=== PATIENT | male | born 1965 | race Caucasian/White ===

== ENCOUNTER → 2016-05-21 | Outpatient (CLI) | payer BC ==
[~2016-05-21] MED LIST: NO HOME MEDICATIONS; NORCO 325 MG-51 TAB PO
== END ==
LOC: COL.RAD 11:57
DX: R10.11 Right upper quadrant pain (principal)

== ENCOUNTER → 2016-05-27 | Outpatient (CLI) | payer BC | LOC: COL.RAD 09:56 | DX: R10.11 Right upper quadrant pain (principal); R93.2 Abnormal findings on diagnostic imaging of liver and biliary tract | CPT/HCPCS: A9537 ==

== ENCOUNTER 2016-06-06 09:16 | Day surgery (SDC) | payer BC ==
[2016-06-06] VITALS (7 sets, daily range): BP systolic 125–158; BP diastolic 74–98; PULSE 71–79; TEMP 98–98.7
[~2016-06-06] VITALS: Ht 182.9 cm; Wt 102.7 kg
[~2016-06-06 09:16] MED LIST changes: -NORCO 325 MG-51 TAB PO
[2016-06-06] MEDS ORDERED: NORCO 325 MG-51 TAB PO (09:55)
== END 2016-06-06 15:51 | disposition home or self-care (01) ==
LOC: SDCO 09:16
DX: K81.1 Chronic cholecystitis (principal)
CPT/HCPCS: J0360; J1885; J2270; J2405; J2704; J3010; J7120; Q9967

== ENCOUNTER → 2016-11-26 | Outpatient (REF) ==
[~2016-11-26] MED LIST changes: +NORCO 325 MG-51 TAB PO
== END ==
LOC: ZCOL.LAB 18:01
DX: Z01.89 Encounter for other specified special examinations (principal)

== ENCOUNTER 2020-11-30 19:55 | Observation (INO) | payer BC ==
[~2020-11-30] VITALS: Ht 182.9 cm; Wt 103.5 kg
[2020-11-30 21:12] LABS: COLLECTION METHOD CLEAN CATCH
[2020-11-30 21:21] LABS: HEMATOCRIT 37.8 % (42.0-52.0); HEMOGLOBIN 12.9 g/dl (13.5-18.0); MEAN CELL VOLUME 97 fl (80.0-100.0); MEAN CORPUSCULAR HEMOGLOBIN 33 pg (27.0-31.0); MEAN CORPUSCULAR HGB CONC 34 g/dl (33.0-37.0); MEAN PLATELET VOLUME 11.7 fl (7.4-10.4); PLATELET COUNT 123 K/mm3 (130-400); REDCELL DISTRIBUTION WIDTH-CV 12.9 % (11.5-14.5)
[2020-11-30 21:26] LABS: MUCOUS Present /lpf; PH 5 (5-8); SQUAMOUS EPITHELIAL None Seen /hpf; URINE APPEARANCE Hazy; URINE BACTERIA Rare /hpf; URINE BILIRUBIN Negative (NEGATIVE); URINE BLOOD 1+ (NEGATIVE); URINE COLOR Amber; URINE GLUCOSE Negative (NEGATIVE); URINE KETONE Trace (NEGATIVE); URINE LEUKOCYTE ESTERASE Negative (NEGATIVE); URINE NITRATE Negative (NEGATIVE); URINE PROTEIN(semi-quant) 2+ (NEGATIVE); URINE RBC 0-2 /hpf
[2020-11-30 21:35] LABS: ALBUMIN 2.9 gm/dL (3.5-5.0); BILIRUBIN,TOTAL 2.4 mg/dL (0.2-1.2); CALCIUM 9.6 mg/dL (8.4-10.2); CREATININE, serum 1.3 mg/dL (0.72-1.25); POTASSIUM 3.6 mmol/L (3.5-4.5); TOTAL PROTEIN 7.7 gm/dL (6.2-8.1)
[2020-11-30 21:58] LABS: BAND 17 % (0-10); LYMPHOCYTE 17 % (20.0-51.0); NEUTROPHILS 64 % (42.0-75.2); PLATELET ESTIMATE NORMAL (NORMAL)
[2020-11-30 22:13] LABS: C-REACTIVE PROTEIN 21.7 mg/dL (0.00-0.50)
[2020-11-30 23:42] LABS: INR 1.5 (0.8-3.0); PROTHROMBIN TIME 16.3 SECONDS (9.7-12.8)
--- NOTE | 2020-12-01 01:50 | NUR ---
PATIENT UP TO FLOOR FROM ER. PATIENT IS ALERT AND ORIENTED X4. VSS. PATIENT HAS IV TO RIGHT AC. PATIENT COMPLAINING OF LOWER BACK PAIN AND ABDOMINAL PAIN. PAIN MEDS GIVEN PER ORDERS. ANTIBIOTICS STARTED PER ORDERS. PATIENT IS VERY PLEASANT. WBC COUNT OF 1.7. PATIENT DENIES FURTHER NEEDS AT THIS TIME. CALL LIGHT WITHIN REACH. ADMISSIONS ASSESSMENTS COMPLETE.
[2020-12-01 02:09] VITALS: BP 130/78; PULSE 88; TEMP 98.2
[2020-12-01] MEDS ORDERED: REVLIMID10 MG PO (02:26)
[2020-12-01] MEDS ORDERED: ZOLOFT 25MG25 MG PO (02:27)
[2020-12-01] MEDS ORDERED: XARELTO20 MG PO (02:27)
[2020-12-01] MEDS ORDERED: QUESTRAN LI4 GM/5 GM PO (02:28)
[2020-12-01] MEDS ORDERED: VITAMIN D 50,1.25 MG PO (02:30)
[2020-12-01] MEDS ORDERED: KLOR-CON20 MEQ PO (02:33)
[2020-12-01] MEDS ORDERED: PHARMASSURE CHE30 MG PO (02:34)
[2020-12-01] MEDS ORDERED: B2-5050 MG PO (02:35)
[2020-12-01] MEDS ORDERED: B-12 500 MCG PO (02:35)
[2020-12-01] MEDS ORDERED: MASON NATURAL2000 IU PO (02:36)
[2020-12-01] MEDS ORDERED: BENADRYL25 M2 PO (02:37)
--- NOTE | 2020-12-01 06:17 | NUR ---
PATIENT DID WELL THROUGHOUT THE NIGHT. PATIENT DENIES PAIN OR FURTHER NEEDS. CALL LIGHT WITHIN REACH. WILL REPORT TO DAYSHIFT.
[2020-12-01 08:15] VITALS: BP 122/71; PULSE 90; TEMP 98
[2020-12-01 10:23] LABS: CALCIUM 9.1 mg/dL (8.4-10.2); CREATININE, serum 1.08 mg/dL (0.72-1.25); POTASSIUM 3.7 mmol/L (3.5-4.5)
[2020-12-01 12:30] VITALS: BP 135/69; PULSE 102; TEMP 102.1
--- NOTE | 2020-12-01 15:47 | NUR ---
Plan is to return home [facility]. Sw met with patient about care. Patient reports that his Gila is a care support and dtr Carlgrecia is another resource. [facility] is pref for medications. Patient reports that he has pain but it is decreasing and his cancer is in remission. Patient shares that he has no care concern and is independent otherwise. will transport home. Patient shares that he does not use any [facility]HS. Educated on serivce, nothing follows.
[2020-12-01 17:00] VITALS: BP 122/56; PULSE 85; TEMP 98.8
[2020-12-01 19:40] VITALS: BP 117/58; BP 139/54; PULSE 71; PULSE 99; TEMP 100.4; TEMP 98.4
--- NOTE | 2020-12-01 20:00 | NUR ---
PATIENT IS ALERT AND ORIENTED X4. LAYING IN BED SOMEWHAT DROWSY. PATIENT IN DNR AND ON GENERAL DIET. PATIENT HAS IV TO RIGHT AC. PATIENT GIVEN PAIN MEDS PER ORDERS. PATIENT DENIES PAIN OR FURTHER NEEDS AT THIS TIME. CALL LIGHT WITHIN REACH. HEAD TO TOE ASSESSMENT COMPLETE.
[2020-12-01 23:50] VITALS: BP 123/72; PULSE 90; TEMP 99
[2020-12-02 03:50] VITALS: BP 123/68; PULSE 88; TEMP 99.3
--- NOTE | 2020-12-02 06:36 | NUR ---
PATIENT DID WELL THROUGHOUT NIGHT. GIVEN PAIN MEDS AND TYLENOL PER ORDERS. NO CHANGES. NO FURTHER NEEDS AT THIS TIME. WILL REPORT TO DAYSHIFT
[2020-12-02 06:37] LABS: HEMOGLOBIN 11.3 g/dl (13.5-18.0); MEAN CELL VOLUME 98 fl (80.0-100.0); MEAN CORPUSCULAR HEMOGLOBIN 33 pg (27.0-31.0); MEAN CORPUSCULAR HGB CONC 34 g/dl (33.0-37.0); MEAN PLATELET VOLUME 11.4 fl (7.4-10.4); PLATELET COUNT 101 K/mm3 (130-400); RED BLOOD COUNT 3.38 M/mm3 (4.20-5.60); REDCELL DISTRIBUTION WIDTH-CV 12.8 % (11.5-14.5)
--- NOTE | 2020-12-02 06:54 | NUR ---
CRITICAL WBC CALLED TO DR GALLARDO
[2020-12-02 07:05] LABS: CALCIUM 8.6 mg/dL (8.4-10.2); CREATININE, serum 0.99 mg/dL (0.72-1.25); POTASSIUM 3.4 mmol/L (3.5-4.5)
--- NOTE | 2020-12-02 07:48 | NUR ---
Patient laying in bed awake, oriented x4. VSS. IV CDI. Reports being cold, shivering. Oral temp 98.7. Reports general pain, pain medication given as requested. No further needs expressed. Call light within reach
[2020-12-02 07:53] VITALS: BP 127/75; PULSE 88; TEMP 98.7
[2020-12-02 08:35] LABS: BAND 8 % (0-10); LYMPHOCYTE 12 % (20.0-51.0); NEUTROPHILS 70 % (42.0-75.2)
[2020-12-02 08:36] LABS: PLATELET ESTIMATE DECREASED (NORMAL)
[2020-12-02 12:00] VITALS: BP 135/78; PULSE 86; TEMP 98.4
[2020-12-02 16:10] VITALS: BP 126/69; PULSE 87; TEMP 99
--- NOTE | 2020-12-02 17:55 | NUR ---
Patient had an uneventful day. A&Ox4. VSS. IV CDI. Low grade fever, denies pain and discomfort. Independent in the room. No further needs expressed. Call light within reach
[2020-12-02 20:00] VITALS: BP 130/73; PULSE 96; TEMP 98.8
[2020-12-03 04:01] VITALS: BP 138/76; PULSE 83; TEMP 99.1
[2020-12-03 08:20] VITALS: BP 130/75; PULSE 81; TEMP 99.3
[2020-12-03 08:25] LABS: MEAN CELL VOLUME 96 fl (80.0-100.0); MEAN CORPUSCULAR HEMOGLOBIN 33 pg (27.0-31.0); MEAN CORPUSCULAR HGB CONC 35 g/dl (33.0-37.0); MEAN PLATELET VOLUME 12.2 fl (7.4-10.4); PLATELET COUNT 117 K/mm3 (130-400); REDCELL DISTRIBUTION WIDTH-CV 12.6 % (11.5-14.5)
[2020-12-03 08:30] LABS: HEMATOCRIT 31.5 % (42.0-52.0)
[2020-12-03 08:44] LABS: CALCIUM 8.4 mg/dL (8.4-10.2); CREATININE, serum 0.83 mg/dL (0.72-1.25); POTASSIUM 3.4 mmol/L (3.5-4.5)
--- NOTE | 2020-12-03 08:55 | NUR ---
PT SITTING UP IN BED. LOOKING AT MENU FOR BREAKFASTS. AM MEDS GIVEN ORDERED. PT DENIES NEEDS OR PAIN AT THIS TIME. VSS, ASSESMENTS COMPLETE.
[2020-12-03 09:10] LABS: BAND 16 % (0-10); BASOPHIL 1 % (0-2); LYMPHOCYTE 7 % (20.0-51.0); METAMYELOCYTE 1 % (0-0); NEUTROPHILS 75 % (42.0-75.2)
[2020-12-03 09:11] LABS: PLATELET ESTIMATE DECREASED (NORMAL)
[2020-12-03] MEDS ORDERED: LEVAQUIN 750MG750 M1 PO (11:53)
[2020-12-03 12:12] VITALS: BP 131/71; PULSE 79; TEMP 98
--- NOTE | 2020-12-03 12:41 | NUR ---
Initial visit; Patient thanked Order Editor for looking in on him and keeping him in Order Editor's prayers.
--- NOTE | 2020-12-03 13:58 | NUR ---
DISCHARGE INSTRUCTIONS REVIEWED WITH PT. PT VERBALIZED UNDERSTANDING. PT LEFT FLOOR AMBULATORY TO ED ENTRANCE.
== END 2020-12-03 13:45 | disposition home or self-care (01) ==
LOC: COL.ER 19:55 → SURG 12-01 00:54
PROVIDERS: Family Medicine; Student in an Organized Health Care Education/Training Program; ADMIT Internal Medicine
DX: J18.1 Lobar pneumonia, unspecified organism (principal); N17.9 Acute kidney failure, unspecified; C90.00 Multiple myeloma not having achieved remission; D75.89 Other specified diseases of blood and blood-forming organs; M54.50 Low back pain, unspecified; N18.9 Chronic kidney disease, unspecified; E87.6 Hypokalemia; R74.01 Elevation of levels of liver transaminase levels; F32.9 Major depressive disorder, single episode, unspecified; Z86.718 Personal history of other venous thrombosis and embolism; Z79.899 Other long term (current) drug therapy
CPT/HCPCS: 99232-AI; 99239; G0378; J0692; J1170; J1885; J1956; J2270; J2405; J7120; Q9967